=== PATIENT | male | born 1950 | race Caucasian/White ===

== ENCOUNTER → 2017-01-15 | Outpatient (CLI) | payer MEDICARE ==
[2017-01-15 10:07] LABS: Basophils % (A) 0 %; CH 33.9; CHCM 36.1; Eosinophils # (A) 0.1 k/uL (0-0.7); Eosinophils % (A) 2 %; HCT 46.3 % (39.0-53.0); HDW 3.05; HGB 16.1 gm/dL (13.0-17.5); Luc # (Auto) 0.11; Luc % (Auto) 2; Lymphocytes # (A) 1.3 k/uL (1.0-4.8); Lymphocytes % (A) 23 %; MCH 32.8 pg (25.0-35.0); MCHC 34.8 g/dL (31.0-37.0); MCV 94.4 fL (80.0-100.0); Mean Platelet Volume 6.6; Monocytes # (A) 0.3 k/uL (0-1.0); Monocytes % (A) 5 %; Neutrophils # (A) 3.8 k/uL (1.3-7.7); Neutrophils % (A) 68 %; RDW 12.9 % (11.5-15.5); WBC 5.7 k/uL (3.8-10.6); WBC (Perox) 5.75
[2017-01-15 10:30] LABS: ALT 45 U/L (21-72); AST 30 U/L (17-59); Alkaline Phosphatase 56 U/L (38-126); Anion Gap 11 mmol/L; Blood Urea Nitrogen 19 mg/dL (9-20); Calcium 9.8 mg/dL (8.4-10.2); Carbon Dioxide 31 mmol/L (22-30); Chloride 102 mmol/L (98-107); Cholesterol 181 mg/dL (<200); Glucose 101 mg/dL (74-99); HDL Cholesterol 50 mg/dL (40-60); Non-African American GFR(MDRD) >60 (>60 ml/min/1.73 sqM); Potassium 4.2 mmol/L (3.5-5.1); Sodium 144 mmol/L (137-145); Total Bilirubin 1.4 mg/dL (0.2-1.3); Triglycerides 80 mg/dL (<150)
[2017-01-15 10:56] LABS: Appearance,Urine Clear (Clear); Bilirubin,Urine Negative (Negative); Glucose,Urine (UA) Negative (Negative); Ketones,Urine Negative (Negative); Leukocyte Esterase,Urine Negative (Negative); Nitrite,Urine Negative (Negative); PH, Urine 6.5 (5.0-8.0); Protein,Urine Negative (Negative); Specific Gravity,Urine 1.015 (1.001-1.035); UA Billing (MACRO vs. MICRO) CHEM; Urobilinogen,Urine <2.0 mg/dL (<2.0)
[2017-01-15 11:15] LABS: Hepatitis C Virus IgG Index 0.06
[2017-01-15 11:25] LABS: Hepatitis C Virus IgG Ab Negative (Negative)
[2017-01-15 11:50] LABS: Hemoglobin A1C 5.1 % (4.2-6.1)
== END | disposition home or self-care (01) ==
LOC: LABWHC1 09:34
PROVIDERS: ATTEND Internal Medicine
DX: E55.9 Vitamin D deficiency, unspecified (principal); R73.09 Other abnormal glucose; Z13.6 Encounter for screening for cardiovascular disorders; Z13.9 Encounter for screening, unspecified; Z12.5 Encounter for screening for malignant neoplasm of prostate
CPT/HCPCS: 86803; 80061; 80053; 83036; 85025; 81003; 82306; 36415; G0103

== ENCOUNTER → 2018-01-11 | Outpatient (CLI) | payer MEDICARE ==
[2018-01-11 11:37] LABS: Basophils % (A) 0 %; Eosinophils # (A) 0.1 k/uL (0-0.7); Eosinophils % (A) 3 %; HCT 44.4 % (39.0-53.0); HGB 15.7 gm/dL (13.0-17.5); Lymphocytes # (A) 1.3 k/uL (1.0-4.8); Lymphocytes % (A) 24 %; MCHC 35.4 g/dL (31.0-37.0); MCV 90.5 fL (80.0-100.0); Mean Platelet Volume 6.9; Monocytes # (A) 0.3 k/uL (0-1.0); Monocytes % (A) 5 %; Neutrophils # (A) 3.5 k/uL (1.3-7.7); Neutrophils % (A) 66 %; Platelet Count 177 k/uL (150-450); RDW 12.7 % (11.5-15.5); WBC 5.2 k/uL (3.8-10.6)
[2018-01-11 11:51] LABS: ALT 38 U/L (21-72); AST 30 U/L (17-59); Albumin 4.3 g/dL (3.5-5.0); Alkaline Phosphatase 58 U/L (38-126); Anion Gap 14 mmol/L; Blood Urea Nitrogen 14 mg/dL (9-20); Calcium 9.7 mg/dL (8.4-10.2); Carbon Dioxide 26 mmol/L (22-30); Chloride 104 mmol/L (98-107); Cholesterol 178 mg/dL (<200); Glucose 102 mg/dL (74-99); HDL Cholesterol 41 mg/dL (40-60); LDL Cholesterol,Calculated 108 mg/dL (0-99); Potassium 4.7 mmol/L (3.5-5.1); Sodium 144 mmol/L (137-145); Total Bilirubin 0.9 mg/dL (0.2-1.3); Total Protein 7.1 g/dL (6.3-8.2); Triglycerides 147 mg/dL (<150)
[2018-01-11 12:20] LABS: Prostate Specific Antigen 1.96 ng/mL (0.00-4.00)
[2018-01-11 17:27] LABS: HIV AB P24 Non-Reactive (Non-Reactive); HIV P24 AG Non-Reactive (Non-Reactive)
[2018-01-12 14:45] LABS: C. trachomatis,PCR Negative (Neg,Equiv); Chlamydia trachomatis Source Urine; N. gonorrhoeae,PCR Negative (Neg,Equiv); Neisseria Source Urine
== END | disposition home or self-care (01) ==
LOC: LABWHC1 10:41
PROVIDERS: ATTEND Internal Medicine
DX: Z00.01 Encounter for general adult medical examination with abnormal findings (principal); M79.675 Pain in left toe(s); Z13.6 Encounter for screening for cardiovascular disorders; Z11.3 Encounter for screening for infections with a predominantly sexual mode of transmission; Z12.5 Encounter for screening for malignant neoplasm of prostate
CPT/HCPCS: 36415; 80053; 80061; 84153; 85025; 86780; 86803; 87390; 87491; 87529; 87591

== ENCOUNTER → 2019-03-03 | Outpatient (CLI) | payer MEDICARE ==
--- NOTE | 2019-03-03 11:48 | CT ---
EXAMINATION TYPE: CT abdomen pelvis w con DATE OF EXAM: 03/03/2019 COMPARISON: NONE HISTORY: 69-year-old male disorders of kidney and ureter, abnormal ultrasound and microscopic hematur ia TECHNIQUE: Contiguous axial scanning of the abdomen and pelvis following administration of 100 ml Iso abby 300 IV contrast. Delayed images through the kidneys and coronal/sagittal reconstructions perform ed. CT DLP: 1138.5 mGycm Automated exposure control for dose reduction was used. 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 Minimal scattered coronary vessel calcifications are not ed. Heart normal size. Lung bases clear without pleural effusion. Multiple hepatic cysts are demonstrated, largest measuring 6.5 cm in the right liver lobe. Portal waldo ous system is patent. No biliary ductal dilatation. Liver is mildly enlarged to 18.3 cm. Spleen is mildly enlarged at 14.3 cm. Small dependent calculi in the gallbladder measuring up to 4 m. No abnormal gallbladder distention. Adrenal glands and pancreas appear within normal limits. A few cortical hypodensities in the right kidney measuring up to 1.1 cm, too small for accurate CT ch aracterization, likely cysts. No definite suspicious enhancing renal mass. Date 2 mm left lower pole renal calculus. Symmetric uptake and excretion of contrast from both kidney s. No suspicious filling defect identified of either renal collecting system. No dilated small bowel, free fluid, or free air. Prominent 7 mm right lower quadrant mesenteric lymph node is nonspecific, probably reactive/post inflammatory. Mild overall stool burden mild diverticulo sis along the proximal and mid sigmoid. Bladder is urine distended with markedly enlarged prostate gland measuring up to 7.7 cm AP by 6.7 cm wide by 7.0 cm craniocaudal with prominent impression onto the base of the bladder. A 9 mm bladder ca lculus is present dependently in the right. No abnormal fluid collection in the pelvis or pelvic lymphadenopathy. Multiple pelvic phleboliths. Bones: Mild degenerative changes at the hips. Degenerative bridging ankylosis of the SI joints. Moder ate to advanced degenerative disc disease L4-L5 and moderate at L3-L4. Facet arthropathy lower lumbar spine. Endplate spondylosis lower thoracic spine. Solitary sclerotic focus within the medial left iliac bone measuring 1.2 cm, reference axial image 74 . There is central fat density suggested on coronal image 79 slightly stellate margins suggesting a b enign etiology, possible bone island. IMPRESSION: 1. MARKED PROSTATOMEGALY MEASURING UP TO 7.7 CM. CORRELATE WITH PSA VALUES AND POTENTIAL SYMPTOMS OF BLADDER OUTLET OBSTRUCTION. 2. SOLITARY SCLEROTIC FOCUS WITHIN THE LEFT ILIAC BONE IS NONSPECIFIC. AGAIN, CORRELATE WITH PSA VALU ES. A BENIGN ETIOLOGY SUCH A BONE ISLAND IS FAVORED GIVEN ITS STELLATE MARGINS AND POSSIBLE CENTRA L FAT DENSITY ON CORONAL SERIES. 3. PUNCTATE 2 MM NONOBSTRUCTIVE LEFT RENAL CALCULUS. THERE IS ALSO A DEPENDENT 9 MM BLADDER CALCULUS. 4. A FEW HYPODENSE CORTICAL LESIONS IN THE RIGHT KIDNEY MEASURE UP TO 1.1 CM AND ARE TOO SMALL FOR AC CURATE CT CHARACTERIZATION, LIKELY REPRESENTING CYSTS. 5. MULTIPLE HEPATIC CYSTS MEASURING UP TO 6.5 CM. 6. MILD HEPATOSPLENOMEGALY (LIVER 18.3 CM AND SPLEEN 14.2 CM). 7. CHOLELITHIASIS AND MILD SIGMOID DIVERTICULOSIS.
== END ==
LOC: RADCTMAIN 09:28
PROVIDERS: ATTEND Internal Medicine
DX: N20.0 Calculus of kidney (principal); N21.0 Calculus in bladder; N40.0 Benign prostatic hyperplasia without lower urinary tract symptoms; K80.20 Calculus of gallbladder without cholecystitis without obstruction; R16.2 Hepatomegaly with splenomegaly, not elsewhere classified; K57.30 Diverticulosis of large intestine without perforation or abscess without bleeding; K76.89 Other specified diseases of liver
CPT/HCPCS: 74177; Q9967

== ENCOUNTER → 2022-12-16 | Outpatient (CLI) | payer MEDICARE ==
[2022-12-16 14:25] LABS: Basophils # (A) 0.02 X 10*3/uL (0.00-0.10); Basophils % (A) 0.3 %; Eosinophils # (A) 0.18 X 10*3/uL (0.04-0.35); Eosinophils % (A) 2.7 %; HCT 42.5 % (39.6-50.0); HGB 14.2 g/dL (13.0-17.0); Immature Grans, Automated 0.2 %; Lymphocytes # (A) 1.18 X 10*3/uL (0.90-5.00); MCH 31.8 pg (27.0-32.0); MCHC 33.4 g/dL (32.0-37.0); MCV 95.1 fL (80.0-97.0); Mean Platelet Volume 9.3 fL (9.5-12.2); Monocytes # (A) 0.56 X 10*3/uL (0.20-1.00); Monocytes % (A) 8.5 %; NRBC Per 100 WBC 0 /100 WBCS (0.0-0.0); Neutrophils % (A) 70.3 %; Platelet Count 142 X 10*3/uL (140-440); RBC 4.47 X 10*6/uL (4.40-5.60); RDW 12.7 % (11.5-14.5); WBC 6.55 X 10*3/uL (4.50-10.00)
[2022-12-16 15:47] LABS: African American GFR (CKD) 97.9 (60.0-200.0); Anion Gap 10.4 mmol/L (10.00-18.00); Blood Urea Nitrogen 16.2 mg/dL (9.0-27.0); Calcium 9.9 mg/dL (8.7-10.3); Carbon Dioxide 27.6 mmol/L (20.0-27.5); Non-African American GFR(CKD) 84.4 (60.0-200.0); Potassium 4.3 mmol/L (3.5-5.5)
[2022-12-16 21:59] LABS: Appearance,Urine Clear (Clear); Bilirubin,Urine Negative (Negative); Blood,Urine Negative (Negative); Color,Urine Yellow (Yellow); Ketones,Urine Negative (Negative); Nitrite,Urine Negative (Negative); PH, Urine 5.5 (5.0-8.0); Specific Gravity,Urine 1.019 (1.001-1.030); Urobilinogen,Urine 0.2 (0.2,1.0)
== END | disposition home or self-care (01) ==
LOC: LABPAT 10:37
PROVIDERS: ATTEND Urology
DX: Z01.812 Encounter for preprocedural laboratory examination (principal); N21.9 Calculus of lower urinary tract, unspecified; R31.29 Other microscopic hematuria
CPT/HCPCS: 80048; 81003; 85025; 87086

== ENCOUNTER 2022-12-23 07:04 | Day surgery (SDC) | payer MEDICARE ==
--- NOTE | 2022-12-22 17:54 | P.GSHP ---
History of Present Illness H&P Date: 12/22/22 72 yo male who had abdominal pain and hematuria. He had a ct scan identifying a large prostate and a 17 mm bladder stone. He comes for cysto with laser cystolithotripsy - Constitutional Constitutional: Denies chills, Denies fever - EENT Eyes: denies blurred vision, denies pain Ears, nose, mouth and throat: Denies headache, Denies sore throat - Cardiovascular Cardiovascular: Denies chest pain, Denies shortness of breath - Respiratory Respiratory: Denies cough, Denies 7 - Gastrointestinal Gastrointestinal: Denies abdominal pain, Denies diarrhea, Denies nausea, Denies vomiting - Genitourinary (Female) Genitourinary: Denies dysuria, Denies hematuria - Genitourinary (Male) Genitourinary: Denies dysuria, Denies hematuria - Musculoskeletal Musculoskeletal: Denies myalgias - Integumentary Integumentary: Denies pruritus, Denies rash - Neurological Neurological: Denies numbness, Denies weakness - Psychiatric Psychiatric: Denies anxiety, Denies depression - Endocrine Endocrine: Denies fatigue, Denies weight change Past Medical History Past Medical History: Hypertension Additional Past Medical History / Comment(s): Bladder stone, sinus issues History of Any Multi-Drug Resistant Organisms: None Reported Past Surgical History: Appendectomy, Orthopedic Surgery Additional Past Surgical History / Comment(s): crainiotomy 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 brain tumor removal benign, bilat knees arthroscopic, bilateral cats Past Anesthesia/Blood Transfusion Reactions: No Reported Reaction Additional Past Anesthesia/Blood Transfusion Reaction / Comment(s): Pt has never blood transfusion Smoking Status: Never smoker - Past Family History Father Family Medical History: No Reported History Medications and Allergies Home Medications Medication Instructions Recorded Confirmed Type Cetirizine HCl [Zyrtec] 5 mg PO HS 12/21/22 12/21/22 History amLODIPine BESYLATE 2.5 mg PO HS 12/21/22 12/21/22 History Allergies Allergy/AdvReac Type Severity Reaction Status Date / Time No Known Allergies Allergy Verified 12/21/22 12:41 Surgical - Exam - General well developed, well nourished, no distress - Eyes normal ocular movement, no icteric - ENT no hearing loss, no congestion - Neck no masses, trachea midline - Respiratory normal respiratory effort, clear to auscultation - Abdomen Abdomen: soft, non tender, no guarding, no rigid, no rebound - Integumentary no rash, no abnormal pigmentation - Neurologic no disoriented, no combative - Psychiatric oriented to time, oriented to person, oriented to place, speech is normal, memory intact Results - Imaging CT scan - abdomen: report reviewed, image reviewed CT scan - pelvis: report reviewed, image reviewed Assessment and Plan Assessment: Impression: Bladder stone Plan: cysto with laser cystolithotripsy
[~2022-12-23 07:04] MED LIST: DEXAMETHASONE SOD PHOSPHATE 4 MG/ML 1 ML VIAL IV ONE; HYDROmorphone 0.5 MG/0.5 ML SYRINGE IVP PRN; LACTATED RINGERS 1,000 ML IV SCH; LIDOCAINE 1% (10MG/ML) FOR IV START INTRADERMA PRN; ONDANSETRON 4 MG/2 ML VIAL IVP ONE
--- NOTE | 2022-12-23 07:27 | XR ---
EXAMINATION TYPE: XR KUB DATE OF EXAM: 12/23/2022 7:17 AM CLINICAL HISTORY: Kidney stones TECHNIQUE: Single supine KUB image of the abdomen is obtained. COMPARISON: Most recent CT November 16, 2022. FINDINGS: Persistent 1.8 cm pelvic bladder calculus. Scattered peripheral bilateral pelvic phlebolith s redemonstrated. No definitive nephrolithiasis. Overall nonobstructive bowel gas pattern. Visualized osseous structures are intact. IMPRESSION: As above.
[2022-12-23] MEDS ORDERED: MIDAZOLAM 2 MG/2 ML VIAL ONE (07:55)
[2022-12-23] MEDS ORDERED: fentaNYL (PF) 50 MCG/ML 2 ML AMP ONE (07:55)
[2022-12-23] MEDS ORDERED: PHENYLEPHRINE-0.9% NACL SYG 1,000 MCG/10 ML SYRINGE ONE (07:55)
[2022-12-23] MEDS ORDERED: LIDOCAINE 2% INJ 20 MG/ML (2 ML VIAL) ONE (07:55)
[2022-12-23] MEDS ORDERED: PROPOFOL 10 MG/ML 20 ML VIAL IV ONE (07:55)
--- NOTE | 2022-12-23 08:55 | P.OP ---
Date of Procedure: 12/23/22 Preoperative Diagnosis: Bladder stone, BPH Postoperative Diagnosis: Same Procedure(s) Performed: Cystoscopy, cystolithotripsy with laser, fulguration of prostatic bleeding Anesthesia: GAYLEA Surgeon: Edwin Bonilla Estimated Blood Loss (ml): 25 Pathology: other (Stone) Condition: stable Disposition: PACU Indications for Procedure: Patient is 72. He had pain and hematuria. His identified to have a 2 cm bladder stone. He comes for cystoscopy and laser lithotripsy to the bladder stone Description of Procedure: Patient brought to the operating suite. Given general anesthetic. Placed lithotomy position with a sterile prep and drape. Cystoscopy with a Foroblique lens and 17-Cameroonian sheath identifies a normal anterior urethra. The prostates long lateral lobe obstruction very vascular and friable. The bladder conway heavily trabeculated. The stone was seen. With 300 laser probe and 30-40 W of energy the stone was broken into tiny pieces and flushed out of the bladder. Due to the manipulation of the cystoscope there is prosthetic bleeding. With the Bugbee electrode I cauterize the urothelium of the prostate. It is still somewhat oozy due to the very large prostate. I thus placed an 18-Cameroonian Allen catheter with 5 mL balloon. The patient's awake and returned recovery room good condition. He tolerated procedure well be discharged home upon recovery with the catheter which will be removed in 48 hours.
[2022-12-23 09:11] VITALS: TEMP 97
[2022-12-23 09:14] VITALS: RESP 16
[2022-12-23 11:21] VITALS: BP 156/84; PULSE 69
== END 2022-12-23 11:00 | disposition home or self-care (01) ==
LOC: OR 07:04
PROVIDERS: ATTEND Urology
DX: N21.0 Calculus in bladder (principal); N40.0 Benign prostatic hyperplasia without lower urinary tract symptoms; I10 Essential (primary) hypertension; Z90.49 Acquired absence of other specified parts of digestive tract; Z98.890 Other specified postprocedural states; Z79.899 Other long term (current) drug therapy
CPT/HCPCS: 82365; 74018; 52317; 52214; J2250; J1100; J0690; J2405; J3010; J2370; J2704; J2001

== ENCOUNTER 2022-12-23 18:22 | Emergency (ER) | payer MEDICARE ==
[2022-12-23 18:35] VITALS: BP 192/83; PULSE 90; RESP 18; TEMP 98.1
--- NOTE | 2022-12-23 21:15 | ED ---
Male Urogenital HPI - General Chief complaint: Urogenital Stated complaint: CATHETER NOT WORKING FROM PROCEDURE Time Seen by Provider: 12/23/22 19:40 Source: patient Mode of arrival: ambulatory Limitations: no limitations - History of Present Illness Initial comments: This patient is 72-year-old man presenting with complaint that there is leakage around his Allen catheter. Patient states he had cystoscopy performed for a urinary stone. The patient has not noted fever or chills. No abdominal or back pain. He is not noting blood in the urine. Denies other complaints. Complaint: other -: hour(s) Severity scale (1-10): 0 Consistency: constant Improves with: none Worsens with: none indwelling catheter Reports: other - Related Data Home Medications Medication Instructions Recorded Confirmed Cetirizine HCl [Zyrtec] 5 mg PO HS 12/21/22 12/23/22 amLODIPine BESYLATE 2.5 mg PO HS 12/21/22 12/23/22 Allergies Allergy/AdvReac Type Severity Reaction Status Date / Time No Known Allergies Allergy Verified 12/23/22 18:35 Review of Systems ROS Statement: Those systems with pertinent positive or pertinent negative responses have been documented in the HPI. ROS Other: All systems not noted in ROS Statement are negative. Constitutional: Denies: fever, chills, weakness Respiratory: Denies: cough, dyspnea Cardiovascular: Denies: chest pain, palpitations Gastrointestinal: Denies: abdominal pain Genitourinary: Reports: as per HPI, other (Early catheter leakage). Denies: hematuria, testicular pain, testicular mass Musculoskeletal: Denies: back pain Past Medical History Past Medical History: Hypertension History of Any Multi-Drug Resistant Organisms: None Reported Past Surgical History: Appendectomy, Orthopedic Surgery Additional Past Surgical History / Comment(s): crainiotomy 09/2012 for brain tumor removal, bilat knees Past Psychological History: No Psychological Hx Reported Smoking Status: Never smoker Past Alcohol Use History: None Reported Past Drug Use History: None Reported General Exam Limitations: no limitations General appearance: alert, in no apparent distress Respiratory exam: Present: normal lung sounds bilaterally. Absent: respiratory distress, wheezes, rales, rhonchi, stridor Cardiovascular Exam: Present: regular rate, normal rhythm, normal heart sounds. Absent: systolic murmur, diastolic murmur GI/Abdominal exam: Present: soft. Absent: distended, tenderness, guarding, rebound exam: Present: other (There is a Allen catheter present. Genitourinary exam otherwise normal) Extremities exam: Present: normal inspection, normal capillary refill. Absent: pedal edema Skin exam: Present: warm, dry, intact, normal color. Absent: rash Course Vital Signs 12/23/22 18:30 Temperature 98.1 F Pulse Rate 90 Respiratory 18 Rate Blood Pressure 192/83 O2 Sat by Pulse 97 Oximetry Medical Decision Making - Medical Decision Making Patient is 72-year-old man here with leakage around his Allen catheter. The catheter was flushed to ensure there was no obstruction, and is draining clear urine. The patient's was unsatisfied and wanted to go home. We discussed possibility that if obstruction develops again it may need to be replaced, patient understands and will return if there is any problem, otherwise going to follow with urology. Was pt. sent in by a medical professional or institution (, PA, COMPOUND SPECIALIST, urgent care, hospital, or long term...) When possible be specific @ -[No] Did you speak to anyone other than the patient for history (EMS, parent, family, police, friend...)? What history was obtained from this source @ -[No] Did you review nursing and triage notes (agree or disagree)? Why? @ -[I reviewed and agree with nursing and triage notes] Were old charts reviewed (outside hosp., previous admission, EMS record, old EKG, old radiological studies, urgent care reports/EKG's, long term records)? Report findings @ -[No old charts were reviewed] Differential Diagnosis (chest pain, altered mental status, abdominal pain women, abdominal pain men, vaginal bleeding, weakness, fever, dyspnea, syncope, headache, dizziness, GI bleed, back pain, seizure, CVA, palpatations, mental health, musculoskeletal)? @ -[Differential diagnosis of the Allen catheter malfunction includes partial dislodgment of the catheter, catheter obstruction, catheter leakage, amongst other conditions EKG interpreted by me (3pts min.). @ -[ X-rays interpreted by me (1pt min.). @ -[None done] CT interpreted by me (1pt min.). @ -[None done] U/S interpreted by me (1pt. min.). @ -[None done] What testing was considered but not performed or refused? (CT, X-rays, U/S, l abs)? Why? @ -[None] What meds were considered but not given or refused? Why? @ -[None] Did you discuss the management of the patient with other professionals (professionals i.e. , PA, COMPOUND SPECIALIST, lab, RT, psych nurse, health social work professor, corn husker, teacher, field artillery officer, casework manager)? Give summary @ -[No] Was smoking cessation discussed for >3mins.? @ -[No] Was critical care preformed (if so, how long)? @ -[No] Were there social determinants of health that impacted care today? How? (Homelessness, low income, unemployed, alcoholism, drug addiction, transportation, low edu. Level, literacy, decrease access to med. care, [facility], rehab)? @ -[No] Was there de-escalation of care discussed even if they declined (Discuss DNR or withdrawal of care, Hospice)? DNR status @ -[No] What co-morbidities impacted this encounter? (DM, HTN, Smoking, COPD, CAD, Cancer, CVA, ARF, Chemo, Hep., AIDS, mental health diagnosis, sleep apnea, morbid obesity)? @ -[None] Was patient admitted / discharged? Hospital course, mention meds given and route, prescriptions, significant lab abnormalities, going to OR and other p ertinent info. @ -[Discharged Undiagnosed new problem with uncertain prognosis? @ -[No] Drug Therapy requiring intensive monitoring for toxicity (Heparin, Nitro, Insulin, Cardizem)? @ -[No] Were any procedures done? @ -[No] Diagnosis/symptom? @ -[Allen catheter malfunction, acute, uncomplicated Acute, or Chronic, or Acute on Chronic? @ -[default] Uncomplicated (without systemic symptoms) or Complicated (systemic symptoms)? @ -[default] Side effects of treatment? @ -[No] Exacerbation, Progression, or Severe Exacerbation? @ -[No] Poses a threat to life or bodily function? How? (Chest pain, [place], [place], pneumonia, PE, COPD, DKA, ARF, appy, cholecystitis, CVA, Diverticulitis, Homicidal, Suicidal, threat to staff... and all critical care pts) @ -[No] Disposition Clinical Impression: Malfunction of Allen catheter Disposition: HOME SELF-CARE Condition: Good Instructions (If sedation given, give patient instructions): Allen Catheter Placement and Care (ED) Is patient prescribed a controlled substance at d/c from ED?: No Referrals: Gee Jarvis MD [Primary Care Provider] - 1-2 days Edwin Bonilla MD [STAFF PHYSICIAN] - 1-2 days
== END 2022-12-23 21:26 | disposition home or self-care (01) ==
LOC: EC 18:22
DX: T83.031A Leakage of indwelling urethral catheter, initial encounter (principal); I10 Essential (primary) hypertension; Z79.899 Other long term (current) drug therapy; Y73.8 Miscellaneous gastroenterology and urology devices associated with adverse incidents, not elsewhere classified
CPT/HCPCS: 99283

== ENCOUNTER → 2023-06-08 | Outpatient (CLI) | payer MEDICARE ==
--- NOTE | 2023-06-08 10:41 | CT ---
EXAMINATION TYPE: CT sinus wo con DATE OF EXAM: 06/08/2023 COMPARISON: None HISTORY: sinusitis CT DLP: 641 mGycm. Automated Exposure Control for Dose Reduction was Utilized. TECHNIQUE: CT scan of the sinuses is performed without contrast, axial images are obtained, coronal r eformatted images are also reviewed. FINDINGS: There is mild mucosal thickening in the inferior aspects of both maxillary sinus. There is an mucous retention cyst or polyp in the inferior left maxillary sinus. The ostiomeatal complexes are patent. The frontal, ethmoid and sphenoid sinuses are well aerated without air-fluid level, polyp or mucosal thickening. The osseous conway of paranasal sinuses are intact. The intraorbital contents appear normal and symmetric. The nasal cavity is unremarkable. IMPRESSION: Mild chronic inflammatory changes in the maxillary sinuses as described above.
== END | disposition home or self-care (01) ==
LOC: RADCTMAIN 09:47
PROVIDERS: ATTEND Otolaryngology
DX: J32.0 Chronic maxillary sinusitis (principal)
CPT/HCPCS: 70486

== ENCOUNTER → 2023-12-01 | Outpatient (CLI) | payer MEDICARE ==
--- NOTE | 2023-12-01 23:10 | MR ---
EXAMINATION TYPE: MR shoulder RT wo con DATE OF EXAM: 12/01/2023 COMPARISON: Right shoulder x-ray November 23, 2023 HISTORY: Right shoulder pain, injury about 2 and a half months ago TECHNIQUE: Multiplanar, multisequence imaging of the right shoulder is performed without contrast. FINDINGS: Rotator Cuff: Intact supraspinatus and infraspinatus tendons. Intact subscapularis tendon. Rotator cu ff muscle bulk is preserved. Acromioclavicular Joint: Mild to moderate narrowing and spurring. Topb-to-jfomurvo superior capsular hypertrophy. Some loss of the underlying fat plane noted. Glenohumeral Joint: Moderate size joint effusion. Some narrowing is seen superiorly. No significant s purring. Labrum: Increased signal superior labrum suggesting degenerative tearing coronal image 14. Biceps Tendon: The long head of biceps is in normal location within bicipital groove. Bone marrow signal: Subchondral cystic change superolateral aspect of the humeral head is present.. Other: No additional significant abnormality is appreciated. IMPRESSION: 1. Moderate degenerative changes are present as detailed above. Superior labral tear is seen. No rota tor cuff tear noted.
== END | disposition home or self-care (01) ==
LOC: RADMRIMAIN 20:00
PROVIDERS: ATTEND Orthopaedic Surgery
DX: M19.011 Primary osteoarthritis, right shoulder (principal)

== ENCOUNTER → 2024-02-11 | Outpatient (CLI) | payer MEDICARE ==
--- NOTE | 2024-02-11 13:53 | XR ---
EXAMINATION TYPE: XR KUB DATE OF EXAM: 02/11/2024 12:31 PM CLINICAL INDICATION:Male, 74 years old with history of N200 CALCULUS-KIDNEY; [facility] COMPARISON: 11/16/2022.. TECHNIQUE: One radiographic view of the abdomen was obtained. FINDINGS: The bowel gas pattern is nonspecific without dilated loops of small or large bowel. There i s no evidence for organomegaly or pneumoperitoneum. The osseous structures are intact. No abnormal calcifications are present. Fecal material and gas are demonstrated throughout the colon and rectum. Stones seen on prior projecting over the urinary bladder no longer visualized IMPRESSION: 1. No renal calculi visualized. 2. Stone projecting over the bladder on prior is no longer present. 3. Nonspecific bowel gas pattern without radiographic evidence for acute process.
== END | disposition home or self-care (01) ==
LOC: RADXRMAIN 12:14
PROVIDERS: ATTEND Urology
DX: N20.0 Calculus of kidney (principal)
CPT/HCPCS: 74018

== ENCOUNTER 2024-04-24 12:28 | Emergency (ER) | payer MEDICARE | END 2024-04-24 15:35 | disposition home or self-care (01) | LOC: EC 12:28 | DX: R33.9 Retention of urine, unspecified (principal) | CPT/HCPCS: 51798; 99283 ==

== ENCOUNTER 2024-05-04 12:14 | Emergency (ER) | payer MEDICARE ==
[2024-05-04] MEDS ORDERED: cefTRIAXone IN SWFI 1,000 MG/10 ML SYRINGE IVP ONE (16:59)
--- NOTE | 2024-06-05 10:13 | XR ---
Patient Mychal Zambrano ID [id number] Order # EXAMINATION TYPE: XR chest 2V DATE OF EXAM: 05/04/2024 COMPARISON: No comparison available on downtime PACS. INDICATION: Cough TECHNIQUE: Frontal and lateral views of the chest are obtained. FINDINGS: The heart size is normal. The pulmonary vasculature is normal. The lungs are clear. IMPRESSION: 1. No acute pulmonary process. [facility], , 06/05/2024 10:11 AM
== END 2024-05-04 17:05 | disposition home or self-care (01) ==
LOC: EC 12:14
DX: J18.9 Pneumonia, unspecified organism (principal)
CPT/HCPCS: 71046; 93005; 96374; 99284

== ENCOUNTER → 2025-03-02 | Outpatient (CLI) | payer MEDICARE ==
[2025-03-02 15:10] LABS: Basophils # (A) 0.02 X 10*3/uL (0.00-0.10); Basophils % (A) 0.4 %; Eosinophils # (A) 0.11 X 10*3/uL (0.04-0.35); Eosinophils % (A) 2.1 %; HGB 15.3 g/dL (13.0-17.0); Lymphocytes # (A) 1.38 X 10*3/uL (0.90-5.00); Lymphocytes % (A) 25.9 %; MCV 94.1 FL (80.0-97.0); Mean Platelet Volume 9.6 FL (9.5-12.2); Monocytes # (A) 0.44 X 10*3/uL (0.20-1.00); Monocytes % (A) 8.3 %; NRBC Per 100 WBC 0 X 10*3/uL (0.00-0.01); Neutrophils # (A) 3.36 X 10*3/uL (1.80-7.70); Neutrophils % (A) 63.1 %; Platelet Count 174 X 10*3/uL (140-440); RBC 4.78 X 10*6/uL (4.40-5.60); RDW 12.8 % (11.5-14.5); WBC 5.32 X 10*3/uL (4.50-10.00)
[2025-03-02 15:19] LABS: Appearance,Urine Clear (Clear); Bilirubin,Urine Negative (Negative); Blood,Urine Negative (Negative); Color,Urine Yellow (Yellow); Ketones,Urine Negative (Negative); Nitrite,Urine Negative (Negative); Specific Gravity,Urine 1.014 (1.001-1.030); Urobilinogen,Urine 0.2 E.U./DL
[2025-03-02 15:43] LABS: ALT 33 U/L (10-49); AST 28 U/L (14-35); Albumin 4.3 g/dL (3.8-4.9); Albumin/Globulin Ratio 1.65 Ratio (1.60-3.17); Alkaline Phosphatase 65 U/L (41-126); BUN/Creat Ratio 13.22 Ratio (12.00-20.00); Blood Urea Nitrogen 11.9 mg/dL (9.0-27.0); Calcium 9.6 mg/dL (8.7-10.3); Carbon Dioxide 25.8 mmol/L (21.6-31.8); Chloride 105 mmol/L (96-109); Chol/HDL Ratio 3.28 Ratio; Globulin 2.6 g/dL (1.6-3.3); Glucose 116 mg/dL (70-110); LDL Cholesterol,Calculated 98.8 mg/dL (0.0-131.0); Potassium 4.5 mmol/L (3.5-5.5); Prostate Specific Antigen 0.97 ng/mL (0.000-6.500); Sodium 141 mmol/L (135-145); Total Protein 6.9 g/dL (6.2-8.2); VLDL Calculation 15.16 mg/dL (5.00-40.00)
== END | disposition home or self-care (01) ==
LOC: LABWHC1 09:23
PROVIDERS: ATTEND Physician Assistant
DX: Z12.5 Encounter for screening for malignant neoplasm of prostate (principal); I10 Essential (primary) hypertension; E55.9 Vitamin D deficiency, unspecified
CPT/HCPCS: 36415; 80053; 80061; 81003; 82306; 83036; 84153; 84443; 85025